=== PATIENT | female | born 2000 | race Caucasian/White ===

== ENCOUNTER 2022-07-10 20:30 | Emergency (ER) | payer OTHER ==
[2022-07-10] MEDS ORDERED: Sodium Chloride 0.9% 1000 ML 1,000 ML IV STA (20:55)
[2022-07-10] MEDS ORDERED: Sodium Chloride 0.9% 1000 ML 1,000 ML ONE (20:58)
[2022-07-10 21:03] LABS: Absolute Neutrophil Ct (ANC) 6.42 x10^3/uL (1.4-6.9); Basophil (Absolute #) 0.02 x10^3/uL (0-0.4); Eosinophil % 0.4 % (0.00-5.0); Eosinophil (Absolute #) 0.03 x10^3/uL (0-0.5); Hematocrit 34.9 % (35-47); Hemoglobin 11.4 g/dL (12.0-16.0); Lymphocyte (Absolute #) 1.34 x10^3/uL (1.0-4.6); Lymphocytes % 16.6 % (24.0-44.0); Mean Cell Volume 86.6 fL (78-100); Mean Corpuscular Hemoglobin 28.3 pg (26-32); Mean Corpuscular Hgb Concent. 32.7 g/dL (32-36); Mean Platelet Volume 10.8 fL (7.5-11.0); Monocyte (Absolute #) 0.26 x10^3/uL (0.0-1.3); Monocytes % 3.2 % (0.0-12.0); Neutrophil % 79.4 % (36.0-66.0); Platelet Count 214 x10^3/uL (150-450); Red Blood Count 4.03 x10^6/uL (4.1-5.4); Red Cell Distribution Width 13.6 % (11.5-14.0); White Blood Count 8.1 x10^3/uL (4.0-10.5)
[2022-07-10 21:08] LABS: Epithelial Cells RARE /HPF (FEW); Hyaline Casts 0-2 /LPF (0-2); Mucus SLIGHT /HPF (NEGATIVE); WBC 51-100 /HPF (0-5)
[2022-07-10 21:09] LABS: Appearance SLIGHTLY CLOUDY (CLEAR); Glucose >=1000 mg/dL (NEGATIVE)
[2022-07-10 21:10] LABS: Bilirubin NEGATIVE (NEGATIVE); Dipstick done @ ? MAIN LAB; Ketones TRACE (NEGATIVE); Nitrite NEGATIVE (NEGATIVE); Ph 6.5 (5-6); Protein,Urine Dip NEGATIVE (Negative); RBC NEGATIVE Ery/ul (0-5); Specific Gravity 1.025 (1.005-1.025); Urine Cultured Indicated? YES; Urobilinogen 0.2 mg/dL (0-1)
[2022-07-10 21:20] LABS: ALBUMIN 4.1 g/dL (3.5-5.0); ALKALINE PHOSPHATASE 51 U/L (38-126); ANION GAP 9.3 MEQ/L (5-15); BLOOD UREA NITROGEN 9 mg/dL (7-17); CHLORIDE 105 mmol/L (98-107); Calcium 8.8 mg/dL (8.4-10.2); Carbon Dioxide 23 mmol/L (22-30); Creatinine 1 0.49 mg/dL (0.52-1.04); EST GLOMERULAR FILTRATION RATE > 60.0 ML/MIN; Glucose 145 mg/dL (74-106); Potassium 3.1 mmol/L (3.5-5.1); SGOT/AST 19 U/L (14-36); SGPT/ALT 11 U/L (0-35); SODIUM 134 mmol/L (137-145); Total Protein 7.5 g/dL (6.3-8.2)
[2022-07-10] MEDS ORDERED: ROCEPHIN 2 Gm-D5w 50ML BAG** 2 G/50 ML IVPB IV STA (21:51)
[2022-07-10] MEDS ORDERED: Klor Con PO ONE ×2 (21:55→21:56)
[2022-07-10] MEDS ORDERED: ROCEPHIN 2 Gm-D5w 50ML BAG** 2 G/50 ML IVPB IV ONE (21:56)
[2022-07-10 22:05] LABS: ABO TYPING O; Antibody Screen NEGATIVE (NEGATIVE); RH TYPING POSITIVE
--- NOTE | 2022-07-10 23:10 | ERPHSYRPT ---
- History of Present Illness Time Seen by Provider: 07/10/22 20:40 Source: patient Exam Limitations: no limitations Patient Subjective Stated Complaint: pt states she has been having some intermittent vaginal bleeding and cramping for approx last 2 week. states yesterday she passed a clot and today woke up with cramping which got worse throughout the day. states according to her hcg levels she was told she was approx 10 weeks Triage Nursing Assessment: pt alert and oriented, answers questions approp. pt ambualtoryw ith steady gait noted. respirations nonlabored. skin pink warm and dry. Physician History: 22 years old 2 para 1 at almost 5 weeks gestation per LMP presented in the ER with chief complaint of pelvic pain and vaginal bleeding/spotting off and on for the last couple of weeks and having some clots earlier today. She is also complaining of increased urinary frequency. Patient does not have ultrasound done yet with primary OB. Timing/Duration: week(s), gradual onset, worse Activites at Onset: rest Quality: cramping Onset Location: pelvic pain Pain Radiation: none Severity of Pain-Max: moderate Severity of Pain-Current: mild Modifying Factors: Improves With: nothing Associated Symptoms: urinary frequency, Allergies/Adverse Reactions: No Known Drug Allergies Allergy (Verified 07/10/22 20:57) Hx Tetanus, Diphtheria Vaccination/Date Given: Yes Hx Influenza Vaccination/Date Given: No Hx Pneumococcal Vaccination/Date Given: No Travel Risk - International Travel Have you traveled outside of the country in past 3 weeks: No - Coronavirus Screening Are you exhibiting any of the following symptoms?: No Close contact with a COVID-19 positive Pt in past 14-21 Days: No - Vaccine Status Have you recieved a Covid-19 vaccination: No - Review of Systems Constitutional: No Symptoms Eyes: No Symptoms Ears, Nose, & Throat: No Symptoms Respiratory: No Symptoms Cardiac: No Symptoms Abdominal/Gastrointestinal: No Symptoms Genitourinary Symptoms: , Vaginal Bleeding Musculoskeletal: No Symptoms Skin: No Symptoms Neurological: No Symptoms Endocrine: No Symptoms Hematologic/Lymphatic: No Symptoms Immunological/Allergic: No Symptoms - Past Medical History Pertinent Past Medical History: No - Past Surgical History Past Surgical History: Yes Female Surgical History: Section - Social History Smoking Status: Never smoker Exposure to second hand smoke: No Drug Use: none Patient Lives Alone: Yes - Female History Hx Last Menstrual Period: unsure Hx Now: Yes Gestational Age: approx 10 - Nursing Vital Signs Nursing Vital Signs: Initial Vital Signs Temperature 98.4 F 07/10/22 20:42 Pulse Rate 81 07/10/22 20:42 Respiratory Rate 16 07/10/22 20:42 Blood Pressure 112/65 07/10/22 20:42 O2 Sat by Pulse Oximetry 97 07/10/22 20:42 Pain Scale Pain Intensity 1 - Physical Exam General Appearance: no apparent distress, alert Eye Exam: PERRL/EOMI Ears, Nose, Throat Exam: normal ENT inspection, pharynx normal Neck Exam: normal inspection, full range of motion Respiratory Exam: normal breath sounds, lungs clear Cardiovascular Exam: regular rate/rhythm, normal heart sounds Gastrointestinal/Abdomen Exam: soft, normal bowel sounds, No tenderness Back Exam: normal inspection Extremity Exam: normal inspection, normal range of motion Neurologic Exam: alert, oriented x 3, cooperative Skin Exam: normal color SpO2 Interpretation: normal SpO2: 99 O2 Delivery: Room Air Ordered Tests: Active Orders 24 hr Category Date Time Status IV Insertion STAT Care 07/10/22 20:55 Active NPO (ED) STAT Care 07/10/22 20:55 Active OB <14 WKS 1ST GESTATION [US] Stat Exams 07/10/22 23:46 Taken CBC W DIFF Stat Lab 07/10/22 20:50 Completed CMP Stat Lab 07/10/22 20:50 Completed CULTURE,URINE Stat Lab 07/10/22 20:57 Received HCG, Quantitative (Inhouse) Stat Lab 07/10/22 20:50 Completed UA W/RFX CULTURE Stat Lab 07/10/22 20:57 Completed Medication Summary Discontinued Medications Generic Name Dose Route Start Last Admin Trade Name Silviano PRN Reason Stop Dose Admin Sodium Chloride 1,000 mls @ 999 mls/hr 07/10/22 20:55 07/10/22 22:00 Sodium Chloride 0.9% 1000 Ml IV 07/10/22 21:55 Infused .Q1H1M STA Infusion Sodium Chloride Confirm 07/10/22 20:58 Sodium Chloride 0.9% 1000 Ml Administered 07/10/22 20:59 Dose 1,000 mls @ ud .ROUTE .STK-MED ONE Ceftriaxone Sodium/Dextrose 2 g in 50 mls @ 100 mls/hr 07/10/22 21:51 07/10/22 22:28 Rocephin 2 Gm-D5w 50ml Bag IV 07/10/22 22:20 Infused STAT STA Infusion Ceftriaxone Sodium/Dextrose Confirm 07/10/22 21:56 Rocephin 2 Gm-D5w 50ml Bag Administered 07/10/22 21:57 Dose 2 g in 50 mls @ ud IV .STK-MED ONE Potassium Chloride 40 meq 07/10/22 21:55 07/10/22 21:58 Potassium Chloride Tab 10 Meq Tab PO 07/10/22 21:56 40 meq STAT ONE Administration Potassium Chloride Confirm 07/10/22 21:56 Potassium Chloride Tab 10 Meq Tab Administered 07/10/22 21:57 Dose 40 meq PO .STK-MED ONE Lab/Rad Data: Laboratory Result Diagrams 07/10/22 20:50 07/10/22 20:50 Laboratory Results 07/10/22 07/10/22 07/10/22 Range/Units 20:57 20:50 20:50 WBC (4.0-10.5) x10^3/uL RBC (4.1-5.4) x10^6/uL Hgb (12.0-16.0) g/dL Hct (35-47) % MCV (78-100) fL MCH (26-32) pg MCHC (32-36) g/dL RDW (11.5-14.0) % Plt Count (150-450) x10^3/uL MPV (7.5-11.0) fL Gran % (36.0-66.0) % Immature Gran % (Auto) (0.00-0.4) % Nucleat RBC Rel Count (0.00-0.1) % Eos # (Auto) (0-0.5) x10^3/uL Immature Gran # (Auto) (0.00-0.03) x10^3u/L Absolute Lymphs (auto) (1.0-4.6) x10^3/uL Absolute Monos (auto) (0.0-1.3) x10^3/uL Absolute Nucleated RBC (0.00-0.01) x10^3u/L Lymphocytes % (24.0-44.0) % Monocytes % (0.0-12.0) % Eosinophils % (0.00-5.0) % Basophils % (0.0-0.4) % Absolute Granulocytes (1.4-6.9) x10^3/uL Basophils # (0-0.4) x10^3/uL Sodium (137-145) mmol/L Potassium (3.5-5.1) mmol/L Chloride (98-107) mmol/L Carbon Dioxide (22-30) mmol/L Anion Gap (5-15) MEQ/L BUN (7-17) mg/dL Creatinine (0.52-1.04) mg/dL Estimated GFR ML/MIN Glucose (74-106) mg/dL Calcium (8.4-10.2) mg/dL Total Bilirubin (0.2-1.3) mg/dL AST (14-36) U/L ALT (0-35) U/L Alkaline Phosphatase (38-126) U/L Serum Total Protein (6.3-8.2) g/dL Albumin (3.5-5.0) g/dL Beta HCG, Quant 159156 mIU/ml Urinalys Dipstick Clnc MAIN LAB Urine Color YELLOW (YELLOW) Urine Appearance SLIGHTLY CLOUDY A (CLEAR) Urine pH 6.5 (5-6) Ur Specific Maury 1.025 (1.005-1.025) POC Urine Protein Conf NEGATIVE (Negative) Urine Ketones TRACE A (NEGATIVE) Urine Nitrite NEGATIVE (NEGATIVE) Urine Bilirubin NEGATIVE (NEGATIVE) Urine Urobilinogen 0.2 (0-1) mg/dL Urine Leukocytes SMALL A (NEGATIVE) Urine WBC (Auto) 51-100 A (0-5) /HPF Urine RBC (Auto) 6-10 A (0-2) /HPF U Hyaline Cast (Auto) 0-2 (0-2) /LPF U Epithel Cells (Auto) RARE (FEW) /HPF Urine Bacteria (Auto) NONE (NEGATIVE) /HPF Urine RBC NEGATIVE (0-5) Wilman/ul Urine Mucus (Auto) SLIGHT A (NEGATIVE) /HPF Ur Culture Indicated? YES Urine Glucose >=1000 A (NEGATIVE) mg/dL ABO Group O Rh Factor POSITIVE Antibody Screen NEGATIVE (NEGATIVE) 07/10/22 07/10/22 Range/Units 20:50 20:50 WBC 8.1 (4.0-10.5) x10^3/uL RBC 4.03 L (4.1-5.4) x10^6/uL Hgb 11.4 L (12.0-16.0) g/dL Hct 34.9 L (35-47) % MCV 86.6 (78-100) fL MCH 28.3 (26-32) pg MCHC 32.7 (32-36) g/dL RDW 13.6 (11.5-14.0) % Plt Count 214 (150-450) x10^3/uL MPV 10.8 (7.5-11.0) fL Gran % 79.4 H (36.0-66.0) % Immature Gran % (Auto) 0.2 (0.00-0.4) % Nucleat RBC Rel Count 0.0 (0.00-0.1) % Eos # (Auto) 0.03 (0-0.5) x10^3/uL Immature Gran # (Auto) 0.02 (0.00-0.03) x10^3u/L Absolute Lymphs (auto) 1.34 (1.0-4.6) x10^3/uL Absolute Monos (auto) 0.26 (0.0-1.3) x10^3/uL Absolute Nucleated RBC 0.00 (0.00-0.01) x10^3u/L Lymphocytes % 16.6 L (24.0-44.0) % Monocytes % 3.2 (0.0-12.0) % Eosinophils % 0.4 (0.00-5.0) % Basophils % 0.2 (0.0-0.4) % Absolute Granulocytes 6.42 (1.4-6.9) x10^3/uL Basophils # 0.02 (0-0.4) x10^3/uL Sodium 134 L (137-145) mmol/L Potassium 3.1 L (3.5-5.1) mmol/L Chloride 105 (98-107) mmol/L Carbon Dioxide 23 (22-30) mmol/L Anion Gap 9.3 (5-15) MEQ/L BUN 9 (7-17) mg/dL Creatinine 0.49 L (0.52-1.04) mg/dL Estimated GFR > 60.0 ML/MIN Glucose 145 H (74-106) mg/dL Calcium 8.8 (8.4-10.2) mg/dL Total Bilirubin 0.90 (0.2-1.3) mg/dL AST 19 (14-36) U/L ALT 11 (0-35) U/L Alkaline Phosphatase 51 (38-126) U/L Serum Total Protein 7.5 (6.3-8.2) g/dL Albumin 4.1 (3.5-5.0) g/dL Beta HCG, Quant mIU/ml Urinalys Dipstick Clnc Urine Color (YELLOW) Urine Appearance (CLEAR) Urine pH (5-6) Ur Specific Maury (1.005-1.025) POC Urine Protein Conf (Negative) Urine Ketones (NEGATIVE) Urine Nitrite (NEGATIVE) Urine Bilirubin (NEGATIVE) Urine Urobilinogen (0-1) mg/dL Urine Leukocytes (NEGATIVE) Urine WBC (Auto) (0-5) /HPF Urine RBC (Auto) (0-2) /HPF U Hyaline Cast (Auto) (0-2) /LPF U Epithel Cells (Auto) (FEW) /HPF Urine Bacteria (Auto) (NEGATIVE) /HPF Urine RBC (0-5) Wilman/ul Urine Mucus (Auto) (NEGATIVE) /HPF Ur Culture Indicated? Urine Glucose (NEGATIVE) mg/dL ABO Group Rh Factor Antibody Screen (NEGATIVE) - Progress Progress: improved Air Movement: good Progress Note: 07/10/22 23:48 22 years old is evaluated for pelvic cramping with vaginal bleeding. She is given fluids and symptomatic treatment, on reevaluation feeling much better. She does have UTI and given dose of antibiotics. I have obtained ultrasound which showed almost 10 weeks gestation intrauterine with heart tone in 160s and 2 small subchorionic hemorrhages. Recommended increase hydration, pelvic rest and outpatient follow-up with her OB. Does have UTI, given Rocephin in here and will continue with Keflex to go home. Discussed signs symptoms of worsening needing return to ER which she seems understanding. Stable for discharge. 07/10/22 23:57 Blood Culture(s) Obtained: No Antibiotics given: No Counseled pt/family regarding: lab results, diagnosis, need for follow-up, rad results - Departure Departure Disposition: Home Clinical Impression: Subchorionic hemorrhage in first trimester, Vaginal bleeding affecting early , UTI in , antepartum Condition: Stable Critical Care Time: No Referrals: VESTA LARKIN MD [Primary Care Provider] - Follow up/PCP as directed TERELL GREEN DO [ACTIVE STAFF] - Follow up/PCP as directed Instructions: Threatened Miscarriage (DC), Bleeding in Early (DC) Additional Instructions: Follow-up with your OB with [facility]. Plenty of fluids to keep yourself well-hydrated. Take Tylenol as needed. Pelvic rest, return to ER for increased vaginal bleeding, cramping, passing tissue etc. Prescriptions: Cephalexin Mh 500 mg [Keflex 500 mg] 500 mg PO TID #21 cap
[2022-07-11 00:07] VITALS: BP 100/66; PULSE 64; O2SAT 98
--- NOTE | 2022-07-11 09:17 | XRAY ---
Indication: Bleeding and cramping. Two-dimensional transabdominal early OB ultrasound performed. Comparison: None Single viable intrauterine with mean crown-rump length measuring 3.21 cm corresponding to 10 weeks 1 day. heart rate 169 bpm. 2 small foci of subchorionic hemorrhage, largest 2.4 x 0.9 x 1.2 cm. Cervix is closed. Neither ovaries are visualized. No suspicious adnexal mass or free fluid. Impression: Single viable intrauterine measuring 10 weeks 1 day. Expected date of confinement is February 04, 2023. 2 foci subchorionic hemorrhage. Comment: Preliminary report was given.
== END 2022-07-11 00:08 | disposition home or self-care (01) ==
LOC: ED 20:30
DX: O23.41 Unspecified infection of urinary tract in pregnancy, first trimester (principal); N39.0 Urinary tract infection, site not specified; Z3A.09 9 weeks gestation of pregnancy; O20.9 Hemorrhage in early pregnancy, unspecified; R10.2 Pelvic and perineal pain; R35.0 Frequency of micturition; Z28.310 Unvaccinated for COVID-19
CPT/HCPCS: 36000; 36415; 76801; 80053; 81015; 84702; 85025; 86850; 86900; 86901; 87077; 87086; 87186; 96360; 96365; 99284; J0696; A9270-GY

== ENCOUNTER 2022-10-28 20:30 | Observation (INO) | payer OTHER ==
[2022-10-28 21:13] LABS: Appearance Clear (Clear); Bacteria Rare /HPF (None Seen); Bilirubin Negative (Negative); Blood Negative (Negative); Epithelial Cells Rare /HPF (None Seen); Glucose, Urine Negative (Negative); Hyaline Casts NONE SEEN /LPF (0-2); Ketones Trace (Negative); Leukocyte Esterase Small (Negative); Nitrite Negative (Negative); Ph 6.5 (4.6-8.0); Protein,Urine Dip Negative (Negative); RBC 0-2 /HPF (0-5); Urobilinogen 0.2 mg/dL (0.2)
[2022-10-28 21:14] LABS: ADD URINE CULTURE? NO (NO)
[2022-10-28 21:28] LABS: Amphetamine,Urine NEGATIVE (NEGATIVE); Barbiturate,Urine NEGATIVE (NEGATIVE); Benzodiazepine,Urine NEGATIVE (NEGATIVE); Cocaine,Urine NEGATIVE (NEGATIVE); Methadone,Urine NEGATIVE (NEGATIVE); Opiate,Urine NEGATIVE (NEGATIVE); PCP,Urine NEGATIVE (NEGATIVE); THC,Urine NEGATIVE (NEGATIVE)
[2022-10-28 21:53] VITALS: BP 114/71; PULSE 83; O2SAT 100
== END 2022-10-28 22:15 | disposition home or self-care (01) ==
LOC: MED SURG 20:30
PROVIDERS: ADMIT Obstetrics & Gynecology; ATTEND Obstetrics & Gynecology
DX: Z34.82 Encounter for supervision of other normal pregnancy, second trimester (principal); Z3A.25 25 weeks gestation of pregnancy
CPT/HCPCS: 80307; 81001

== ENCOUNTER 2022-12-18 23:13 | Observation (INO) | payer OTHER ==
[2022-12-18 23:49] LABS: Appearance Clear (Clear); Bacteria Rare /HPF (None Seen); Bilirubin Negative (Negative); Blood Negative (Negative); Epithelial Cells None Seen /HPF (None Seen); Glucose, Urine Negative (Negative); Hyaline Casts NONE SEEN /LPF (0-2); Ketones 80 (Negative); Leukocyte Esterase Negative (Negative); Nitrite Negative (Negative); Ph 6.5 (4.6-8.0); Protein,Urine Dip Negative (Negative); RBC 0-2 /HPF (0-5); Urobilinogen 0.2 mg/dL (0.2)
[2022-12-18 23:51] LABS: ADD URINE CULTURE? NO (NO)
[2022-12-18 23:59] LABS: Amphetamine,Urine NEGATIVE (NEGATIVE); Barbiturate,Urine NEGATIVE (NEGATIVE); Benzodiazepine,Urine NEGATIVE (NEGATIVE); Cocaine,Urine NEGATIVE (NEGATIVE); Methadone,Urine NEGATIVE (NEGATIVE); Opiate,Urine POSITIVE (NEGATIVE); PCP,Urine NEGATIVE (NEGATIVE); THC,Urine NEGATIVE (NEGATIVE)
[2022-12-19 00:09] VITALS: O2SAT 99
[2022-12-19] MEDS ORDERED: TYLENOL EXTRA STRENGTH 500 MG PO ONE (00:30)
[2022-12-19] MEDS ORDERED: TYLENOL EXTRA STRENGTH 500 MG ONE (00:43)
[2022-12-19 01:21] VITALS: BP 128/68; PULSE 95
== END 2022-12-19 01:10 | disposition home or self-care (01) ==
LOC: OB 23:13
PROVIDERS: ADMIT Obstetrics & Gynecology; ATTEND Obstetrics & Gynecology
DX: Z34.83 Encounter for supervision of other normal pregnancy, third trimester (principal); Z3A.33 33 weeks gestation of pregnancy
CPT/HCPCS: 80307; 81001; G0378; G0379; A9270-GY